=== PATIENT | male | born 1950 | race Caucasian/White ===

== ENCOUNTER → 2017-04-19 | Outpatient (CLI) | payer OTHER ==
--- NOTE | 2017-04-19 16:48 | PCVCIMAG ---
EXAM: BILATERAL LOWER EXTREMITY ARTERIAL DUPLEX INDICATION: Peripheral Arterial Disease. Leg pain. FINDINGS: Right Leg: Satisfactory arterial waveforms in the common femoral and profunda femoral artery and in the superficial femoral artery and popliteal arteries. Previous stent mid/distal superficial femoral artery maintaining good patency. The anterior tibial, peroneal, and posterior tibial arteries are patent. Left Leg: Satisfactory arterial waveforms throughout the common/profunda/superficial femoral, popliteal, anterior tibial, peroneal, and posterior tibial arteries. No flow limiting stenosis seen. IMPRESSION: No flow limiting stenosis in the right lower extremity. Previous right superficial femoral artery stent is maintaining satisfactory patency. No flow limiting stenosis in the left lower extremity. LOC:[id number]
== END | disposition home or self-care (01) ==
LOC: PCVCIMAG 14:30
PROVIDERS: ATTEND Internal Medicine Cardiovascular Disease
DX: I73.9 Peripheral vascular disease, unspecified (principal); I10 Essential (primary) hypertension; I71.4 Abdominal aortic aneurysm, without rupture; E78.00 Pure hypercholesterolemia, unspecified; I25.10 Atherosclerotic heart disease of native coronary artery without angina pectoris; E11.9 Type 2 diabetes mellitus without complications; J44.9 Chronic obstructive pulmonary disease, unspecified; E66.9 Obesity, unspecified; Z82.49 Family history of ischemic heart disease and other diseases of the circulatory system; Z95.828 Presence of other vascular implants and grafts; Z86.73 Personal history of transient ischemic attack (TIA), and cerebral infarction without residual deficits; Z79.82 Long term (current) use of aspirin; Z79.899 Other long term (current) drug therapy; Z88.0 Allergy status to penicillin
CPT/HCPCS: 80061; 93005; 93925; G0463

== ENCOUNTER → 2017-06-26 | Outpatient (CLI) | payer OTHER ==
--- NOTE | 2017-06-26 12:30 | PCVCIMAG ---
EXAM: ABDOMINAL ULTRASOUND COMPLETE INDICATION: Abdominal pain FINDINGS: Gallbladder: 1.1 cm shadowing stone in the neck of the gallbladder. No wall thickening or abnormal pericholecystic fluid. Liver: Increased in size measuring 23.0 cm in length. No focal masses. Diffuse increased echogenicity most compatible with diffuse fatty infiltration. Bile ducts: No intra or extra hepatic bile duct dilatation. The common bile duct measures 3.0 mm. Pancreas: Unremarkable where seen. Spleen: Increased in size measuring 14.5 cm in greatest dimension. No focal masses. Right kidney: No hydronephrosis. Length measures 13.1 cm. 1.8 x 2.4 x 2.5 cm hypoechoic area lower pole right kidney does not meet the strict criteria of a benign cyst. It may have increased minimally in size since 2016 study. Further evaluation with CT or MRI examination may be of value. Left kidney: No hydronephrosis. Length measures 13.8 cm. Inferior vena cava: Normal in size where seen. Aorta: 2.9 x 3.4 cm infrarenal abdominal aortic aneurysm is unchanged. IMPRESSION: 1. 1.1 cm gallstone as reviewed above is unchanged at 2016 study. 2. Hepatosplenomegaly is slightly more prominent than prior study. 3. 2.5 cm hypoechoic lesion lower pole right kidney minimally increased in size. Further evaluation with CT and/or MRI examination recommended. LOC:[id number]
== END | disposition home or self-care (01) ==
LOC: PCVCIMAG 09:37
PROVIDERS: ATTEND Internal Medicine Cardiovascular Disease
DX: K80.80 Other cholelithiasis without obstruction (principal); N28.89 Other specified disorders of kidney and ureter; R16.2 Hepatomegaly with splenomegaly, not elsewhere classified; K76.0 Fatty (change of) liver, not elsewhere classified; I71.4 Abdominal aortic aneurysm, without rupture
CPT/HCPCS: 76700

== ENCOUNTER → 2018-02-11 | Outpatient (CLI) | payer OTHER | END | disposition home or self-care (01) | LOC: PCVCIMAG 09:02 | DX: I71.4 Abdominal aortic aneurysm, without rupture (principal); E78.5 Hyperlipidemia, unspecified; I10 Essential (primary) hypertension; I25.10 Atherosclerotic heart disease of native coronary artery without angina pectoris; I77.9 Disorder of arteries and arterioles, unspecified; I73.9 Peripheral vascular disease, unspecified; E11.9 Type 2 diabetes mellitus without complications; Z87.891 Personal history of nicotine dependence; Z79.899 Other long term (current) drug therapy; Z79.82 Long term (current) use of aspirin | CPT/HCPCS: 80061; 93005; 93978 ==

== ENCOUNTER 2018-02-26 09:20 | Outpatient (CLI) | payer OTHER | END 2018-02-28 | disposition home or self-care (01) | LOC: PCVCIMAG 09:20 | DX: I73.9 Peripheral vascular disease, unspecified (principal) | CPT/HCPCS: 93925 ==

== ENCOUNTER → 2018-05-29 | Outpatient (CLI) | payer MEDICARE, OTHER ==
[~2018-05-29] MED LIST: REGADENOSON 0.4 MG/5 ML DISP.SYRIN. IV ONE
--- NOTE | 2018-05-30 16:35 | PCVCIMAG ---
APPROVED REPORT Imaging Protocol: Rest Tc-99m/Stress Tc-99m 1 day Study performed: 05/29/2018 08:56:19 Indication: Dyspnea, Fatigue, Angina Patient Location: Out-Patient Stress Nurse: Amina Doran RN [place] Tech:ASHIA PatinoMT Ht: 5 ft 10 in Wt: 255 lbs BSA: 2.31 m2 HR: 81 bpm BP: 96/57 mmHg BMI: 36.5 Rhythm: SR, PVC's Medical History Medical History: HTN, Hyperlipidemia, PVD, CAD, CVD, Diabetic Noninsulin, Former Smoker, Age Medications: Advair, Proventil, ASA, Bystolic, Metformin, Benicar, Effient, Ranexa, Simvastatin, Flomax, Tradjenta Allergies: PCN Previous Cardiac Procedures: PCI to LAD 2006 Pretest Chest Pain Characteristics: No chest pain Exercise History: Sedentary Physical Disabilities: Legs Meds Held (24 hrs): Bystolic Resting Data Rest SPECT myocardial perfusion imaging was performed in supine position 45 minutes following the intravenous injection of 15.3 mCi of Tc-99m Sestamibi. Time of rest injection: 844 Date: 05/29/2018 Administration Route: IV Administration Site: Right Arm Pharmacologic Stress Pharmacologic stress test was performed by injecting Regadenoson 0.4 mg IV push over 10-15 seconds immediately followed by the intravenous injection of 44.8 mCi of Tc-99m Sestamibi. Time of stress injection: 949 Date: 05/29/2018 Administration Site: Right Arm Gated Stress SPECT was performed 45 minutes after stress injection. The images were gated to evaluate regional wall motion and calculate left ventricular ejection fraction. Stress Test Details Stress Test: Pharmacologic stress testing performed using 0.4 mg of regadenoson per 5 mL given IV over 10 seconds. Reason for pharmacologic stress test: physical limitation. HRMax Heart Rate (APMHR): 154 bpm Resting HR: 81 bpmTarget HR (85% APMHR): 130 bpm Max HR Achieved: 93 bpm % of APMHR: 60 Recovery HR: 88 bpm BP Resting BP: 96/57 mmHg Recovery BP: 120/62 mmHg ECG Resting ECG: Sinus Rhythm Stress ECG: Sinus Rhythm, Sinus Rhythm, NSSTT changes Arrhythmia: APC's Recovery ECG: Sinus Rhythm Clinical Reason for Termination: Completed protocol Stress Symptoms: Lightheaded, Abdominal discomfort, Headache, Nausea Exercise duration: 0 min 55 sec Symptoms resolved with caffeine. Stress ECG Conclusion ECG: Non-ischemic Study Quality Study: Good Study Data Post stress, the left ventricular ejection was 74%.. SSS: 7 SRS: 5 SDS: 2 TID = 1.45. Perfusion Medium sized area of mild reversible ischemia involving the inferolateral left ventricle consistent with a circumflex distribution has developed since May 2017 study. No LAD distribution ischemia seen. Interval devleop of post stress ventricular dilatation is nonspecific but may indicate global ischemia. Wall Motion Normal left ventricular function with no regional wall motion abnormalities. Nuclear Conclusion Medium sized area of mild reversible ischemia involving the inferolateral left ventricle consistent with a circumflex distribution has developed since May 2017 study. No LAD distribution ischemia seen. Post stress, the left ventricular ejection was 74%.. Interpreted by: Herbie Diaz MD Electronically Approved: 05/29/2018 16:44:22 <Conclusion> ECG: Non-ischemic
== END | disposition home or self-care (01) ==
LOC: PCVCIMAG 09:31
PROVIDERS: ATTEND Internal Medicine Cardiovascular Disease
DX: I20.9 Angina pectoris, unspecified (principal); I99.8 Other disorder of circulatory system; R06.09 Other forms of dyspnea; E11.9 Type 2 diabetes mellitus without complications; I73.9 Peripheral vascular disease, unspecified; E78.5 Hyperlipidemia, unspecified; I10 Essential (primary) hypertension; Z87.891 Personal history of nicotine dependence
CPT/HCPCS: 78452; 93017; A9500; J2785

== ENCOUNTER → 2018-06-12 | Outpatient (CLI) | payer OTHER ==
--- NOTE | 2018-06-12 10:33 | PCVCIMAG ---
APPROVED REPORT Patient Location: Out-Patient Indications Stenosis Doppler Spectral Velocity Analysis PSV / EDVPSV / EDV ECA (R) 124 / 11 cm/sECA (L) 110 / 13 cm/s dICA (R) 60 / 21 cm/sdICA (L) 81 / 26 cm/s Katharina (R) 92 / 26 cm/smICA (L) 81 / 21 cm/s pICA (R) 76 / 14 cm/spICA (L) 67 / 14 cm/s Bulb (R) 59 / 10 cm/sBulb (L) 45 / 14 cm/s dCCA (R) 90 / 18 cm/sdCCA (L) 72 / 14 cm/s mCCA (R) 81 / 16 cm/smCCA (L) 102 / 21 cm/s Vert (R) 31 / 6 cm/sVert (L) 39 / 10 cm/s ICA/CCA 1.02 ICA/CCA 1.13 Findings The right carotid bulb has mild calcified plaque. The right proximal internal carotid artery shows <40% stenosis. The right common carotid artery shows no significant stenosis. The right external carotid artery shows no significant stenosis. The left carotid bulb has mild plaque. The left proximal internal carotid artery shows <40% stenosis. The left common carotid artery shows no significant stenosis. The left external carotid artery shows no significant stenosis. Conclusion 1. Right internal carotid artery stenosis (<40%) 2. Left internal carotid artery stenosis (<40%) 3. Antegrade vertebral flow
--- NOTE | 2018-06-12 11:30 | PCVCIMAG ---
EXAM: AORTOILIAC DUPLEX INDICATION: Peripheral arterial disease FINDINGS: AORTA: Suprarenal aorta measures maximum diameter of 2.8 cm. There is a fusiform infrarenal aortic aneurysm. The infrarenal aorta measures maximum diameter of 2.9 x 3.3 cm. No aortic stenosis. RIGHT COMMON ILIAC ARTERY: Maximum diameter is 1.5 cm. No significant stenosis. RIGHT EXTERNAL ILIAC ARTERY: No significant stenosis. LEFT COMMON ILIAC ARTERY: Maximum diameter is 1.4 cm. No significant stenosis. LEFT EXTERNAL ILIAC ARTERY: No significant stenosis. IMPRESSION: 3.3 cm infrarenal abdominal aortic aneurysm. Findings are similar to January 2018 study. LOC:[id number]
== END | disposition home or self-care (01) ==
LOC: PCVCIMAG 10:54
PROVIDERS: ATTEND Internal Medicine Cardiovascular Disease
DX: Z01.818 Encounter for other preprocedural examination (principal); I73.9 Peripheral vascular disease, unspecified; I71.4 Abdominal aortic aneurysm, without rupture; I10 Essential (primary) hypertension; I65.23 Occlusion and stenosis of bilateral carotid arteries
CPT/HCPCS: 93880; 93978

== ENCOUNTER → 2019-05-27 | Outpatient (CLI) | payer BC, OTHER ==
--- NOTE | 2019-05-27 16:19 | PCVCIMAG ---
APPROVED REPORT Study performed: 05/27/2019 15:35:14 Exam: Stress Echocardiogram Indication: CAD s/p CABG Patient Location: Echo lab Stress Nurse: Amina Doran RN Status: routine Ht: 5 ft 11 in HR: 89 bpm BP: 130/74 mmHg Rhythm: NSR Medical History Medical History: CAD s/p CABG, Hyperlipidemia, , HTN Procedure The patient underwent an Exercise Stress Test using the Daryl Protocol. Blood pressure, heart rate, and EKG were monitored. An Echocardiogram was performed by bioinformatics technician in four stages in quad fashion. At peak stress, four selected images were obtained and placed side by side with resting images for comparison. Stress Test Details Stress Test: Exercise stress testing was performed using a Daryl protocol. HR Resting HR: 89 bpmMax Heart Rate (APMHR): 153 bpm Max HR Achieved: 133 bpmTarget HR (85% APMHR): 130 bpm % of APMHR: 86 Recovery HR: 80 bpm HR response to stress: Normal HR response to stress BP Resting BP: 130/74 mmHg Max BP: 160/74 mmHg Recovery BP: 150/64 mmHg BP response to stress: Normal blood pressure response to stress. ECG Resting ECG: Sinus Rhythm Stress ECG: Sinus Rhythm Arrhythmia: VPC's Recovery ECG: Sinus Rhythm Clinical Reason for Termination: Maximal effort Exercise duration: 4 min 53 sec Highest Stage Achieved: Stage 2: 2.5 mph at 12% grade. Exercise capacity: 7.00 METs Overall Exercise Capacity for Age: Poor Pre-Stress Echo The resting Echocardiogram showed normal left ventricular contractility with an estimated Ejection Fraction of about >55%. Normal wall motion in all segments on baseline images. Post-Stress Echo The stress Echocardiogram showed normal left ventricular contractility with an estimated Ejection Fraction of about 60-65%. Normal augmentation of wall motion in all segments on post stress images. Clinical No clinical or ECG evidence for ischemia. Conclusion Clinical Response: Non-ischemic Exercise Capacity: Below Average Stress ECG Response: Non-ischemic Stress Echo Images: Non-ischemic The left ventricle is normal in size and wall thickness in both the rest and stress images. No vavlular abnormalities. Other Information Study Quality: Technically Difficult <Conclusion> The left ventricle is normal in size and wall thickness in both the rest and stress images. No vavlular abnormalities.
== END | disposition home or self-care (01) ==
LOC: PCVCIMAG 16:04
PROVIDERS: ATTEND Internal Medicine Cardiovascular Disease
DX: I25.10 Atherosclerotic heart disease of native coronary artery without angina pectoris (principal); E78.5 Hyperlipidemia, unspecified; I10 Essential (primary) hypertension; Z95.1 Presence of aortocoronary bypass graft
CPT/HCPCS: 93325; 93351